=== PATIENT | male | born 1985 | race Caucasian/White ===

== ENCOUNTER 2023-05-28 09:57 | Emergency (ER) | payer BC, SELFPAY ==
[2023-05-28 10:11] VITALS: BP 132/69
[2023-05-28 12:26] LABS: Urine Albumin Negative (Neg - Trace); Urine Bilirubin Negative (Negative); Urine Character Clear (Clear); Urine Color Yellow; Urine Glucose Negative (Negative); Urine Ketone Negative (Negative); Urine Leukocyte Negative (Negative); Urine Nitrite Negative (Negative); Urine Occult Blood Negative (Negative); Urine Urobilinogen Negative (Neg - 1+)
[2023-05-28] MEDS: BACTRIM DS 800 MG/160 MG 1 TABLET PO (12:41)
--- NOTE | 2023-05-28 12:59 | ED.GENMED ---
History of Present Illness
General
Chief Complaint: Male Genito-Urinary Symptoms
Source: patient
Exam Limitations: none
Time Seen by Provider: 05/28/23 10:39
Travel History
Have you had any contact with someone who has COVID-19?: No
Do you have any symptoms of coronavirus? Fever > 100 degrees, chills, cough, shortness of breath, sore throat, loss of taste or smell, muscle aches, or headache?: No
History of Present Illness
History of Present Illness:
38-year-old male who began having right scrotal pain on Tuesday. He states the pain has worsened over the last few days. Pain worse with walking. No dysuria. No penile discharge. No fevers. No vomiting. No clinical concern for STI as he is
. No abdominal pain
Past History
Past History
ED Past Medical History: None
Phy Exam
Physical Exam
Physical Exam:
CONSTITUTIONAL Vital signs reviewed, Patient alert and oriented to person, place and time. Well-appearing
HEAD atraumatic, normocephalic.
EYES eyelids normal to inspection, Extraocular muscles intact, Conjunctiva normal, Sclera normal.
NECK normal range of motion, Trachea midline, no jugular venous distention.
RESP no respiratory distress
moderate right epididymal tenderness, normal testicular position. Penis normal. No discharge noted
BACK No obvious deformities
UPPER EXTREMITY Gross Range of motion normal, gross motor strength normal
LOWER EXTREMITY Gross range of motion normal, Gross motor strength normal
NEURO Speech normal, No focal motor deficits include, Champion coma scale 15, Memory normal, Cranial Nerves intact to screening exam.
SKIN Skin warm, dry, and normal in color.
PSYCHIATRIC Patient oriented to person place and time, Normal affect.
Course
Orders/Labs/Results
Orders:
Orders
05/28/23 10:39
Scrotum US [US Scrotum] Urgent
Comment:
Reason For Exam: R sided pain
05/28/23 12:16
Urinalysis Reflex To Culture Stat
Date Specimen was Collected: 05/28/23
Time Specimen was Collected: 12:12
Chlamydia/GC by PCR Urgent
ROXANA Source: Urine
Specimen Description:
Source:: URINE
Date Specimen was Collected: 05/28/23
Time Specimen was Collected: 12:11
05/28/23 12:29
Sulfamethox./Trimethoprim Ds [Bactrim Ds 800 mg/160 mg] 1 tablet PO NOW STA
Vital Signs
Initial and Last Documented VS:
Initial Vital Signs
Temp Pulse Resp BP Pulse Ox
98.6 F 64 16 132/69 98
05/28/23 10:11 05/28/23 10:11 05/28/23 10:11 05/28/23 10:11 05/28/23 10:11
Last Documented Vital Signs
Temp Pulse Resp BP Pulse Ox
98.6 F 64 16 132/69 98
05/28/23 10:11 05/28/23 10:11 05/28/23 10:11 05/28/23 10:11 05/28/23 10:11
MDM/Problems Addressed
MDM/Problems Addressed:
Epididymitis, epididymal cyst versus abscess
*Radiology
Radiology exam reviewed: radiology read reviewed
*Pulse Oximetry
Patient hypoxic: no
*Critical Care Note
Total Time (30-74mins, 75-104mins- exclusive of procedures): Not Applicable
Data Reviewed
Source: patient
Further Testing Considered But Not Given:
Consider labs with patient appears well and absence of small
Patient Management
Discussion with other providers: [facility] (Case discussed with urology who agrees with outpatient management. His office will call the patient for follow-up. He advised Bactrim)
ED Attending Note
-
Portions of this chart may have been created with voice recognition software.� Occasional wrong word or��sound alike� substitutions may have occurred due to the inherent limitations of voice recognition software.
Discharge Plan
Departure
Patient Disposition: Home (Routine Discharge)
Date of Disposition: 05/28/23
Time of Disposition: 13:01
Patient with high blood pressure during this ER visit?: No
Discharge Problem:
Acute epididymitis, Abscess of epididymis
Prescriptions:
New
sulfamethoxazole-trimethoprim [Bactrim DS] 800-160 mg tablet
1 tab PO BID 10 Days Qty: 20 0RF
Referrals:
Connor Humphries MD [Active] -
UNKNOWN - PT DOES,NOT KNOW [Family Provider] -
Activity Restrictions/Additional Instructions:
Please follow-up with urology next week. Please return immediately for fevers, vomiting, worsening pain or any other concerns. The urology office will call you to schedule follow-up
Interventions
Interventions:
*ED COVID-19 Vaccine History Last Done: 05/28/23 10:11
[2023-05-28 13:09] VITALS: BP 134/72
== END 2023-05-28 13:10 | disposition home or self-care (01) ==
LOC: EMR 09:57
PROVIDERS: EMERGENCY PHYSICIAN Emergency Medicine
DX: N45.1 Epididymitis (principal); N45.4 Abscess of epididymis or testis
CPT/HCPCS: 99284; 76870; 81003; 87491; 87591; 93976